=== PATIENT | male | born 1995 | race Caucasian/White ===

== ENCOUNTER 2018-09-24 08:36 | Emergency (ER) | payer OTHER, SELFPAY ==
--- NOTE | 2018-09-24 10:26 | RAD ---
RIGHT WRIST FOUR VIEWS: Indication: Injury with pain. FINDINGS: There is no evidence of fracture or dislocation. No radiopaque foreign body. IMPRESSION: No acute osseous abnormality right wrist. POS: [facility]
== END 2018-09-24 09:47 | disposition home or self-care (01) ==
LOC: MADERS 08:36
DX: S66.911A Strain of unspecified muscle, fascia and tendon at wrist and hand level, right hand, initial encounter (principal); F17.220 Nicotine dependence, chewing tobacco, uncomplicated; W18.30XA Fall on same level, unspecified, initial encounter

== ENCOUNTER 2019-02-02 19:06 | Emergency (ER) | payer SELFPAY ==
--- NOTE | 2019-02-02 20:45 | RAD ---
LEFT KNEE FOUR VIEWS: History: Left knee twisting injury. FINDINGS/IMPRESSION: No evidence for acute fracture or dislocation. If there is clinical concern for internal derangement, consider follow up non-emergent knee MRI. POS: [facility]
== END 2019-02-02 21:03 | disposition home or self-care (01) ==
LOC: MADERS 19:06
DX: S83.92XA Sprain of unspecified site of left knee, initial encounter (principal); F17.220 Nicotine dependence, chewing tobacco, uncomplicated; X50.9XXA Other and unspecified overexertion or strenuous movements or postures, initial encounter

== ENCOUNTER 2019-03-03 23:04 | Emergency (ER) | payer SELFPAY | END 2019-03-03 23:40 | disposition home or self-care (01) | LOC: MADERS 23:04 | DX: R07.9 Chest pain, unspecified (principal); F17.220 Nicotine dependence, chewing tobacco, uncomplicated | CPT/HCPCS: 93005 ==

== ENCOUNTER 2020-05-05 06:57 | Emergency (ER) | payer OTHER, SELFPAY ==
--- NOTE | 2020-05-05 07:55 | RAD ---
AP view of the pelvis INDICATION: Pelvic pain without injury COMPARISON: None. FINDINGS: Bones: No acute fracture or subluxation demonstrated. Small bone island is seen within the left aceta bulum. Hips: Intact. SI joints and symphysis pubis: Normal appearing. Intrapelvic contents: Within normal limits. IMPRESSION: No acute osseous abnormality.
== END 2020-05-05 08:10 | disposition home or self-care (01) ==
LOC: MADERS 06:57
DX: M53.3 Sacrococcygeal disorders, not elsewhere classified (principal); F17.220 Nicotine dependence, chewing tobacco, uncomplicated
CPT/HCPCS: 72170